=== PATIENT | male | born 1990 | race African-American/Black ===

== ENCOUNTER 2024-02-12 18:49 | Emergency (ER) | payer MEDICAID ==
[2024-02-12] MEDS: TETANUS, DIPHTHERIA, PERTUSSIS VAC/PF 0.5ML (>10YR OLD) IM ONE (18:59)
[2024-02-12] MEDS: CEFAZOLIN 1000MG PREMIX 50 ML IV ONE (19:03)
[2024-02-12 19:25] VITALS: BP 141/88; PULSE 101; RESP 12; TEMP 36.83628; O2SAT 100
== END 2024-02-12 19:32 | disposition short-term general hospital (02) ==
LOC: ER 18:49 → EDBD 18:49 → ER 19:32
DX: S81.812A Laceration without foreign body, left lower leg, initial encounter (principal); S01.01XA Laceration without foreign body of scalp, initial encounter; S71.132A Puncture wound without foreign body, left thigh, initial encounter; I10 Essential (primary) hypertension; W45.8XXA Other foreign body or object entering through skin, initial encounter; Y93.89 Activity, other specified; Y92.89 Other specified places as the place of occurrence of the external cause; Y99.8 Other external cause status
CPT/HCPCS: 99291; 96365; 73552; 71045; 72170; 73560; 90715; 90471; J0690